=== PATIENT | male | born 1940 | race Caucasian/White ===

== ENCOUNTER → 2022-07-16 10:40 | Outpatient (CLI) | payer MEDICARE, OTHER, SELFPAY ==
--- NOTE | 2022-07-16 | DI.MRI.S_ITS ---
PROCEDURE: MR SHOULDER RT WO CON INDICATIONS: CHRONIC RIGHT SHOULDER PAIN TECHNIQUE: Noncontrast oblique coronal T2 fast spin echo with fat saturation, oblique sagittal T1 spin echo and T2 fast spin echo with fat saturation, axial T1 spin echo and T2 fast spin echo with fat saturation through the shoulder. COMPARISON: [facility], MR, SHOULDER WITHOUT CONTRAST, 06/19/2012, 16:20. [facility], MR, SHOULDER WITHOUT CONTRAST, 01/03/2013, 9:06. FINDINGS: Image quality: Excellent. Rotator cuff: There is a surgical anchor in humeral head. Possible subscapularis tendon repair. Moderate supraspinatus and supraspinatus and infraspinatus tendinosis without full-thickness tear. Sagittal images demonstrate no rotator cuff muscle atrophy. Bones and bursae: No bone marrow contusions or fractures. Severe glenohumeral joint degeneration and moderate acromioclavicular joint degeneration. There is an exophytic osteophyte versus an an os acromiale superior to the acromioclavicular joint. [id number] glenohumeral joint effusion. Capsule and soft tissues: There is degenerative circumferential tear of the glenoid labrum. Glenohumeral ligaments appear intact. Tenodesis of the long head of the biceps tendon. There is longitudinal tear and tendinosis of the long head of the biceps tendon. The rotator interval appears normal, without fibrosis. The coracohumeral ligament is normal in thickness. IMPRESSION: 1. Severe osteoarthritis of the glenohumeral joint. 2. Degenerative circumferential tear of the glenoid labrum. 3. Tenodesis of the long head of the biceps tendon. There is longitudinal tear and tendinosis of the long head of the biceps tendon. 4. Possible repair of the subscapularis tendon. Recommend correlation with surgical history. 5. Moderate tendinosis of the supraspinatus and infraspinatus tendons without full-thickness tear. No rotator cuff muscle atrophy. 6. Small to moderate glenohumeral joint effusion. Dictated by: Stephanie Medrano M.D. on 07/18/2022 at 9:04 Approved by: Stephanie Medrano M.D. on 07/18/2022 at 9:16
== END ==
PROVIDERS: Family Provider Family Medicine; PCP Nurse Practitioner Family; Referring Provider Nurse Practitioner Family; Visit Provider Nurse Practitioner Family
DX: S43.491A Other sprain of right shoulder joint, initial encounter (principal); S46.111A Strain of muscle, fascia and tendon of long head of biceps, right arm, initial encounter; M25.411 Effusion, right shoulder; M25.511 Pain in right shoulder; M19.011 Primary osteoarthritis, right shoulder; G89.29 Other chronic pain
CPT/HCPCS: 73221

== ENCOUNTER → 2022-09-15 10:20 | Outpatient (CLI) | payer MEDICARE, OTHER, SELFPAY ==
--- NOTE | 2022-09-15 | DI.MRI.S_ITS ---
PROCEDURE: MR HIP RT WO CON INDICATIONS: Unilateral primary osteoarthritis, right hip TECHNIQUE: Noncontrast coronal T1 spin echo and STIR through the bony pelvis. Coronal and axial T2 fast spin echo with fat saturation, sagittal T1 spin echo, and oblique axial T2 fast spin echo with fat saturation through the hip. COMPARISON: None. FINDINGS: Image quality: Excellent. Bones and joints: Moderate bilateral hip joint osteoarthritic changes are seen with superior joint space narrowing, subchondral sclerosis and small marginal osteophyte formation. There is no marrow edema. No intraosseous lesions or fractures. No avascular necrosis of the femoral heads. The visualized lower lumbar spine appears normally aligned. Tendons and ligaments: Distal right gluteus medius and minimus tendinosis at their insertion on greater trochanter is seen, without associated muscle atrophy. The nearby proximal iliotibial band also appears intact. The iliopsoas tendon appears intact, without adjacent bursal fluid collections or evidence for impingement syndrome. The origin of the hamstring tendon is intact at the ischial tuberosity, as well as the associated sacrotuberous ligament. The straight and reflected heads of the rectus femoris muscle origin appear intact, as well as the conjoint tendon. The ligamentum teres appears intact where visualized. Labrum and cartilage: There is diffuse thinning of cartilage over right femoral head. Signal abnormality, contour irregularity is seen involving superior anterior labrum at 12-2 o'clock position suggestive of superior anterior labral tear. The alpha angle of the femur is within normal limits at less than 55 degrees. Soft tissues: Visualized muscles demonstrate normal bulk and internal signal. Quadratus femoris muscle demonstrates no internal edema to suggest ischiofemoral impingement. The proximal sciatic neurovascular bundle appears normal adjacent to the hamstring tendons. No free pelvic fluid. Bladder wall thickness is normal. Genitourinary structures and bowel loops appear normal where visualized. IMPRESSION: 1. Moderate bilateral hip joint osteoarthritis. No pelvic or hip fracture. No evidence of avascular necrosis. 2. Distal right gluteus medius and minimus tendinosis. No other muscle or tendon signal abnormalities. 3. Suggestion of superior anterior right hip labral tear at 12-2 o'clock position. Dictated by: Trace Baker M.D. on 09/15/2022 at 15:23 Approved by: Trace Baker M.D. on 09/15/2022 at 15:27
== END ==
PROVIDERS: Family Provider Family Medicine; PCP Nurse Practitioner Family; Referring Provider Nurse Practitioner Family; Visit Provider Nurse Practitioner Family
DX: M16.0 Bilateral primary osteoarthritis of hip (principal)
CPT/HCPCS: 73721

== ENCOUNTER → 2023-02-21 | Outpatient (CLI) | payer MEDICARE, OTHER, SELFPAY ==
--- NOTE | 2023-02-21 | DI.CT.S_ITS ---
PROCEDURE: CT UE RT WO CON INDICATIONS: Primary osteoarthritis, right shoulder TECHNIQUE: Noncontrast 1-1.5 mm thick sections acquired from the acromioclavicular joint to the inferior scapula, with coronal and sagittal reformatting. COMPARISON: None. FINDINGS: Image quality: Excellent. Bones: Imaging finding shows severe osteoarthritic type degenerative change involving the glenohumeral joint. There is a surgical screw noted anteriorly within the o humeral head. There is a large loose body within the shoulder joint superiorly and posteriorly. A moderate-sized knee joint effusion is present. I do not see evidence for acute osseous abnormality. There appears to be prior postsurgical change at the AC joint. Soft tissues: Soft tissues appear within normal limits. IMPRESSION: 1. Severe osteoarthritic type degenerative change involving glenohumeral joint. 2. Large loose body noted within the glenohumeral joint superiorly posteriorly 3. Moderate-sized shoulder joint effusion. 4. Prior postsurgical changes at the AC joint. 5. Surgical screw within anterior aspect of the humeral head. Dictated by: Kashif Mckeon M.D. on 02/21/2023 at 14:55 Approved by: Kashif Mckeon M.D. on 02/21/2023 at 15:00
== END ==
LOC: CT 10:15
PROVIDERS: Family Provider Family Medicine; PCP Family Medicine; Referring Provider Orthopaedic Surgery; Visit Provider Orthopaedic Surgery
DX: M19.011 Primary osteoarthritis, right shoulder (principal); M24.011 Loose body in right shoulder; M25.411 Effusion, right shoulder; Z98.890 Other specified postprocedural states
CPT/HCPCS: 73200

== ENCOUNTER 2023-03-02 06:26 | Inpatient (IN) | payer MEDICARE, OTHER, SELFPAY ==
[2023-02-20 11:45] VITALS: BMI 27.9
[2023-03-02] MEDS: VANCOMYCIN 1,000 MG/200 ML PIGGYBACK 200 MG IV (06:46)
[2023-03-02] MEDS: LACTATED RINGERS 1,000 ML 42 ML IV (06:47)
[2023-03-02 06:59] VITALS: BP 148/71; PULSE 56; RESP 16; TEMP 36.2; O2SAT 98; BMI 27.9
--- NOTE | 2023-03-02 07:27 | SUR.PREOP ---
due to recent toe surgery increased drainage. Dr. couch canceled case
== END 2023-03-02 07:34 | disposition home or self-care (01) | DRG 554 ==
LOC: AC 10:10 → SSU 11:18
PROVIDERS: Admitting Provider Orthopaedic Surgery; Family Provider Family Medicine; PCP Family Medicine; Referring Provider Orthopaedic Surgery; Visit Provider Orthopaedic Surgery
DX: M19.011 Primary osteoarthritis, right shoulder (principal)
CPT/HCPCS: J1100; J2405; J2704; J3010

== ENCOUNTER 2023-03-23 10:48 | Day surgery (SDC) | payer MEDICARE, OTHER, SELFPAY ==
[2023-03-21 08:46] VITALS: BMI 27.9
[2023-03-23] VITALS (14 sets, daily range): BP systolic 117–157; BP diastolic 58–72; PULSE 54–61; RESP 12–20; TEMP 35.8–36.4; O2SAT 94–99; BMI 27.9; BMI 30.7
[2023-03-23] MEDS: LACTATED RINGERS 1,000 ML 42 ML IV (11:44)
[2023-03-23] MEDS: VANCOMYCIN 1,000 MG/200 ML PIGGYBACK 200 MG IV ×2 (11:44→23:20)
[2023-03-23] MEDS: ACETAMINOPHEN 325 MG TABLET 975 MG PO (11:44)
--- NOTE | 2023-03-23 11:54 | PM.PREOP ---
Pre-operative Note Interval Note History & Physical reviewed/Exam performed by Physician: Yes Changes to H&P: No
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
[2023-03-23] MEDS: TRANEXAMIC ACID 1,000 MG VIAL 1000 MG INJ ×2 (12:58→14:14)
--- NOTE | 2023-03-23 13:00 | DI.RAD.S_ITS ---
PROCEDURE: XR SHOULDER RT MIN 2V INDICATIONS: TSA TECHNIQUE: 2 views of the shoulder were acquired. COMPARISON: None. FINDINGS: Bones: Postoperative changes of right shoulder replacement. There is widening of the acromioclavicular joint. Soft tissues: No suspicious soft tissue calcifications. IMPRESSION: Postoperative changes of right shoulder replacement Dictated by: Elroy Avilez M.D. on 03/23/2023 at 17:05 Approved by: Elroy Avilez M.D. on 03/23/2023 at 17:07
--- NOTE | 2023-03-23 13:08 | SUR.PREOP ---
Block start time [1235] . Monitoring initiated and maintained throughout procedure. Oxygen and medications given per anesthesiologist. Patient remained stable throughout procedure, no adverse reactions noted. Block end time [1242].
[2023-03-23] MEDS: GENTAMICIN 200 MG in SODIUM CHLORIDE 0.9% 100 ML 105 MG IV (13:19)
--- NOTE | 2023-03-23 13:19 | SUR.OPER ---
Beach chair on padded OR bed. Head on gel donut secured with tape over gauze. Non-operative arm secured <90 degrees abduction on padded arm board. Pillow under knees. Safety belt at thigh. Cloth tape over blanket over lower legs.
[2023-03-23] MEDS: LIDOCAINE 1% W/EPI 20 ML INJ (13:35)
--- NOTE | 2023-03-23 14:37 | P.OP_ITS ---
Operative Date/Time/Diagnoses Date of procedure: 03/23/23 Time of procedure: 13:00 Pre-op diagnosis: Right glenohumeral joint arthritis Post-op diagnosis: same Procedure & Clinicians Procedure: Right total shoulder arthroplasty Same procedure as scheduled: Yes Indications: End-stage arthritis glenohumeral joint Surgeon: Sanya White Trimmer Buffing Wheel: Maliha Catherine Anesthesia Type: General and Peripheral nerve block Operative Notes Findings: End-stage arthritic changes to the glenohumeral joint with [id number] articulation. Complete loss of cartilage to both sides of the joint. Large osteophytes around the humeral head and neck. Very large loose body behind the posterior aspect of the glenoid. No sign of any rotator cuff tears. No sign of any high-riding humeral head. Closure Type: primary Applied: implant(s) (Arthrex stem less total shoulder arthroplasty medium cage screw large glenoid 51 trunnion 51 x 19 humeral head) Estimated Blood Loss (mL): 100 Procedure in detail: On date of service, Patient was met in the holding area. The operative site was signed and witnessed by the OR staff. The surgeries once again discussed with the patient and any remaining questions they had were answered fully. Patient was taken back to the operating theater and placed on the operating table in a supine position. Great care was taken to ensure that all bony prominences were properly padded. Patient was then placed into the beach chair position. The head and neck were properly positioned and secured. A timeout was performed verifying patient's name, procedure, and the operative site. The upper extremity was then prepped and draped in the normal sterile fashion. Previously, the bony anatomy and incision were marked out as well as injected with Marcaine with epinephrine. A deltopectoral approach was performed. 10 blade was used to incise the skin and fascial tissue. A deep knife was used to continue sharp dissection until the cephalic vein was visualized. The cephalic vein was dissected free allowing us to expose the deltopectoral interval. This interval was then developed. A Frost elevator was used to free up the deltoid of any scarring both superficially as well as deeply. The vein and the deltoid were taken laterally while the pectoralis was taken medially. This gave us good visualization of the strap muscles. The clavipectoral fascia was removed and the strap muscles were then retracted medially with the pectoralis. This gave us stabilization of the subscapularis. The circumflex vessels were ligated and the subscapularis was sharply excised off the lesser tuberosity and then tagged. Once the subscapularis was released we're able to dislocate the shoulder. Patient had end-stage arthritic changes to the humeral head as well as the glenoid with large osteophytes anterior inferiorly as well as posteriorly. A Ronger was then used to remove the osteophytes. See findings above for descriptions of the humeral head and glenoid. Next, cutting guide was placed and a saw was used to remove the humeral head. Once the head was removed it was templated. A stem less head was planned. A 51 trunnion gave the best coverage. Guidewire was drilled and a medium cage screw was the appropriate size. Protector placed for the osteotomy was then placed and and we turned our attention back to the subscapularis as well as the glenoid. The subscapularis was freed up and a 360? fashion. The degenerative anterior and inferior capsular tissue was removed. This was followed by removing the degenerative labral tissue from around the glenoid as well as the biceps insertion. Retractors were used to protect the axillary nerve while we remove the degenerative capsular and labral tissue. This gave us good visualization of the glenoid. Glenoid trials were used until we found the appropriate fit and curvature. A large glenoid provided the best fit. The center hole was drilled followed by reaming of the glenoid. The wound was copiously irrigated after reaming. Next the pegs were drilled and a trial glenoid was impacted into harper ce. Once we were satisfied with the preparation of the glenoid, the final component was cemented into place. This was followed by impaction. We Return to our attention back to the humerus. The protector plate was removed and the 51 trunnion was placed as well as the medium cage screw. Trial heads were placed and a 51 x 19 provided the best overall fit. Trials were removed and bone tunnels were made into the humeral neck. #2 FiberWire were passed through the bone tunnels for eventual subscapularis repair. The final head were impacted into place and the shoulder was reduced. It was taken through range of motion and was felt to be stable in both posterior translation as well as external and internal rotation with abduction. The subscapularis was repaired back to the lesser tuberosity through the bone tunnels. This was then reinforced with soft tissue repair. Part of the rotator interval was then closed. A drain was placed and the rest of the wound was closed in a layered fashion. The shoulder was then cleaned dried and dressed and the patient was taken to the PACU in stable condition. Patient will follow our postoperative protocol for total shoulder arthroplasty. Complications: none Post-operative Condition: stable Disposition: Acute Care Plan for aftercare: Patient will follow our postoperative protocol for total shoulder arthroplasty
[2023-03-23] MEDS: HYDROCODONE/ACET 5/325 TABLET 2 TAB PO ×3 (15:08→23:25)
[2023-03-23] MEDS: LACTATED RINGERS 1,000 ML 100 ML IV (16:51)
--- NOTE | 2023-03-23 17:21 | PC.NURSE ---
Patient arrived from PACU this afternoon at 1535 this afternoon. He reports pain tolerable to R shoulder 2-310. Aquacel dressing is c/d/i. +CMS to R fingers. Sling in place.Patient is up to void this evening and sitting in his chair for dinner. Son at bedside supportive. Call light in place, belongings in reach, frequent rounding, IVF LR running at 100 ml/hr.
[2023-03-23] MEDS: METOPROLOL ER 25 MG TABLET PO (21:26)
[2023-03-23] MEDS: TAMSULOSIN 0.4 MG CAPSULE 0.8 MG PO (21:26)
[2023-03-23] MEDS: DOCUSATE 100 MG CAPSULE PO (21:26)
[2023-03-23] MEDS: SENNOSIDES 8.6 MG TABLET 17.2 MG PO (21:26)
[2023-03-23] MEDS: ATORVASTATIN 20 MG TABLET 80 MG PO (21:27)
[2023-03-23] MEDS: APIXABAN 5 MG TABLET PO (21:27)
[2023-03-24 00:55] VITALS: BP 147/67; PULSE 56; RESP 17; TEMP 36.2; O2SAT 98
[2023-03-24] MEDS: HYDROCODONE/ACET 5/325 TABLET 2 TAB PO (03:33)
[2023-03-24 04:50] VITALS: BP 135/65; PULSE 56; RESP 17; TEMP 36.3; O2SAT 96
[2023-03-24 06:33] LABS: Hemoglobin 13.1 g/dL (13.5-17.5); Mean Corpuscular HGB Conc 33.7 % (30-36); Mean Corpuscular Hemoglobin 29.8 PG (26-34); Mean Corpuscular Volume 88.5 fL (80-100); Platelet Count 152 X10^3/uL (150-400); Red Blood Cell Count 4.41 X10^6/uL (4.5-5.9); Red Cell Distribution Width 15.2 % (11.6-14.8); White Blood Cell Count 10.8 X10^3/uL (4.5-11.0)
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
[2023-03-24] MEDS: HYDROMORPHONE 0.5 MG INJ IV ×2 (08:00→09:56)
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
[2023-03-24] MEDS: APIXABAN 5 MG TABLET PO (09:56)
[2023-03-24] MEDS: EZETIMIBE 10 MG TABLET PO (09:56)
[2023-03-24] MEDS: DOCUSATE 100 MG CAPSULE PO (09:56)
[2023-03-24 09:57] VITALS: BP 135/65
[2023-03-24] MEDS: METOPROLOL ER 25 MG TABLET PO (09:57)
[2023-03-24] MEDS: MAGNESIUM OXIDE 400 MG TABLET PO (09:57)
[2023-03-24] MEDS: hydroCHLOROthiazide 25 MG TABLET PO (10:00)
--- NOTE | 2023-03-24 11:56 | PC.NURSE ---
Patient is A&OX4. VSS,afebrille. BP 's soft and HR 50's, patient is asymptomatic and states this is normal for him in the a.m. Held scheduled antihypertensive medications this a.m. He reports pain well controlled with prn dilaudid. Per pharmacy and alert in MAR unable to administer tylenol containing medication until 1145. He verbalizes understanding and will take this upon discharge. He verbalizes understanding of all discharge medications, site care, activity limiations, s/sx of infection as well as follow up appointment scheduled with MD Handy on 04/03/23. He is escorted via w/ch to private vehicle with his son at 11:15 this a.m. for discharge home to [place].
== END 2023-03-24 11:15 | disposition home or self-care (01) ==
LOC: AC 03-24 11:44 → OR 03-24 12:31
PROVIDERS: Family Provider Family Medicine; PCP Family Medicine; Referring Provider Orthopaedic Surgery; Visit Provider Orthopaedic Surgery
PROC: 0RQJ0ZZ Repair Right Shoulder Joint, Open Approach (ICD-10-PCS; CPT 23472; principal; 2023-03-23 12:15)
DX: M19.011 Primary osteoarthritis, right shoulder (principal); G89.18 Other acute postprocedural pain
CPT/HCPCS: 23472; 36415; 64450; 73030; 82962; 85027; 97161; 97530; C1776; J1100; J1170; J2405; J2704; J3010

== ENCOUNTER → 2023-06-14 11:53 | Outpatient (CLI) | payer MEDICARE, OTHER, SELFPAY ==
[2023-03-23 15:29] VITALS: BMI 30.7
--- NOTE | 2023-06-14 11:54 | DI.MRI.S_ITS ---
PROCEDURE: MR SHOULDER RT WO CON INDICATIONS: Primary osteoarthritis, right shoulder TECHNIQUE: Noncontrast oblique coronal T2 fast spin echo with fat saturation, oblique sagittal T1 spin echo and T2 fast spin echo with fat saturation, axial T1 spin echo and T2 fast spin echo with fat saturation through the shoulder. COMPARISON: [facility], CR, XR SHOULDER 2+ VIEWS RIGHT, 05/26/2023, 14:31. [facility], MR, MR SHOULDER RT WO CON, 07/16/2022, 11:26. FINDINGS: Image quality: Diagnostic. Significant susceptibility artifacts are noted. Rotator cuff: Limited evaluation of rotator cuff tendons shows no gross full-thickness rotator cuff tendon rupture. Distal infraspinatus and subscapularis tendon is seen. Mild to moderate supraspinatus muscle atrophy is seen on sagittal images. Bones and bursae: Susceptibility artifacts are noted limiting the evaluation of osseous structures. No gross marrow edema. No acute fracture or dislocation. Likely postsurgical widening of acromioclavicular joint is seen. No suspicious bony lesions. Capsule and soft tissues: The long head of the biceps tendon is normal to the extent visualized. The rotator interval appears normal, without fibrosis. The coracohumeral ligament is normal in thickness. IMPRESSION: 1. Limited study due to significant susceptibility artifacts. 2. Prior shoulder arthroplasty and expected postsurgical widening of acromioclavicular joint. No acute fracture or dislocation. No gross marrow edema. 3. No gross full-thickness rotator cuff tendon rupture. Suggestion of distal infraspinatus and subscapularis tendinosis. Mild to moderate supraspinatus muscle atrophy. Dictated by: Trace Baker M.D. on 06/14/2023 at 15:53 Approved by: Trace Baker M.D. on 06/14/2023 at 16:05
== END ==
PROVIDERS: Family Provider Family Medicine; PCP Family Medicine; Referring Provider Orthopaedic Surgery; Visit Provider Orthopaedic Surgery
DX: M19.011 Primary osteoarthritis, right shoulder (principal); M62.511 Muscle wasting and atrophy, not elsewhere classified, right shoulder; Z96.611 Presence of right artificial shoulder joint
CPT/HCPCS: 73221

== ENCOUNTER → 2023-09-28 11:17 | Outpatient (CLI) | payer MEDICARE, OTHER, SELFPAY ==
[2023-03-23 15:29] VITALS: BMI 30.7
--- NOTE | 2023-09-28 11:20 | DI.MRI.S_ITS ---
PROCEDURE: MR LUMBAR SPINE WO CON INDICATIONS: Other spondylosis with radiculopathy, lumbar TECHNIQUE: Noncontrast sagittal T1 spin echo and T2 fast echo, sagittal STIR, and T2 fast spin echo through the lumbar spine. In cases with scoliosis, additional coronal T2 fast spin echo may be performed. COMPARISON: [facility], CT, CT ABDOMEN PELVIS WITHOUT CONTRAST, 11/27/2021, 2:08. FINDINGS: Image quality: Excellent. Alignment and Curvature: There is minimal retrolisthesis seen at L1-L2 and L2-L3. Mild levoconvex scoliotic curvature is noted. Bone Marrow: Marrow is of normal overall signal. No acute vertebral body compression fractures. Spinal Cord: Conus medullaris terminates at the T12-L1 level. Visualized cord demonstrates normal signal and size. Paraspinous Soft Tissues: No paravertebral masses. T12-L1: Normal appearance. L1-L2: Mild loss of disc height is seen. Loss of disc signal is seen. Mild to moderate disc bulge is seen. There is a focal annular fissure seen posteriorly. Moderate facet joint hypertrophy is seen. Moderate bilateral neural foraminal narrowing is seen. Mild central canal narrowing is seen. L2-L3: The disc height is well-preserved. Loss of disc signal is seen at this level. Moderate generalized disc bulge is seen. There is a superimposed central disc protrusion. Mild facet joint hypertrophy is seen. There is at least moderate bilateral neural foraminal narrowing seen. There is a degree of compression seen upon the exiting nerve roots. Mild central canal narrowing is seen. L3-L4: The disc height is well-preserved. Loss of disc signal is seen at this level. Moderate disc bulge is seen, which is eccentric to the right. There is a superimposed central disc protrusion. There is a focal annular fissure seen posteriorly. There is prominent right-sided and moderate to prominent left-sided facet hypertrophy. There is moderate to severe bilateral neural foraminal narrowing seen, with an associated degree of compression seen upon the exiting nerve roots. Moderate central canal narrowing is seen. L4-L5: The disc height is well-preserved. Loss of disc signal is seen at this level. Moderate generalized disc bulge is seen. Moderate to prominent facet hypertrophy can be seen. There is moderate to severe bilateral neural foraminal narrowing seen, with an associated degree of compression seen upon the exiting nerve roots. Mild to moderate central canal narrowing is seen. L5-S1: The disc height and disk signal are relatively well-preserved. Mild generalized disc bulge is seen. Moderate facet joint hypertrophy is seen. Moderate bilateral neural foraminal narrowing is seen. No central canal narrowing is seen. IMPRESSION: Multiple levels lumbar spine degenerative change can be seen, which are overall worst at the L3-L4 level. Several sites of significant neural foraminal narrowing can be seen, with associated exiting nerve root compression. Mild levoconvex scoliotic curvature is noted. Dictated by: Hansel Valdes M.D. on 09/28/2023 at 13:31 Approved by: Hansel Valdes M.D. on 09/28/2023 at 13:35
== END ==
LOC: MRI 11:18
PROVIDERS: Family Provider Family Medicine; PCP Family Medicine; Referring Provider Family Medicine; Visit Provider Family Medicine
DX: M48.061 Spinal stenosis, lumbar region without neurogenic claudication (principal); M47.27 Other spondylosis with radiculopathy, lumbosacral region; M48.07 Spinal stenosis, lumbosacral region; M41.9 Scoliosis, unspecified; I73.9 Peripheral vascular disease, unspecified; M47.26 Other spondylosis with radiculopathy, lumbar region; I70.0 Atherosclerosis of aorta; M79.604 Pain in right leg; M79.605 Pain in left leg; I25.2 Old myocardial infarction; G62.9 Polyneuropathy, unspecified
CPT/HCPCS: 72148

== ENCOUNTER → 2023-12-02 13:32 | Outpatient (CLI) | payer MEDICARE, OTHER, SELFPAY ==
[2023-03-23 15:29] VITALS: BMI 30.7
--- NOTE | 2023-12-02 | DI.CT.S_ITS ---
PROCEDURE: CT ANGIO ABD AORTA RUNOFF INDICATIONS: ARTERIAL INSUFF OF LE, BI LEG PAIN TECHNIQUE: After the administration of intravenous contrast, 2.5 mm sections acquired from T12 to the feet, with optional delayed image acquisition from the knees to the feet. 3-dimensional maximum intensity projection (MIP) coronal and sagittal reformats, and/or 3-dimensional volume rendering reformatting was then performed. For radiation dose reduction, the following was used: automated exposure control. COMPARISON: [facility], CT, CT ABDOMEN PELVIS WITHOUT CONTRAST, 11/27/2021, 2:08. FINDINGS: Image Quality: Diagnostic. Abdominal aorta: There is chunky plaque which results in [id number] distal abdominal aortic stenosis just above the iliacs. Splanchnic vessels: Proximal celiac stenosis. SMA patent. OBIE patent. Right lower extremity: High-grade calcified stenosis of the proximal common iliac, just below the aortic bifurcation. Reference axial image 117 of series 4. Likely calcified occlusion of the distal common iliac with long segment occlusion of the external iliac with reconstitution just above the inguinal ligament. Extensive common femoral disease with likely focal calcified occlusion. Diffuse SFA disease. Likely occlusion short segment above Raffy's canal. Likely calcified occlusion of the popliteal focally. Extensive three-vessel runoff disease, patency unknown, secondary to the extensive atherosclerotic calcifications. Left lower extremity: High-grade calcified stenosis of the proximal common iliac, just below the aortic bifurcation, also reference axial image 117 of series 4. Severe external iliac artery stenotic disease. Probable focal calcified occlusion of the common femoral. Long segment occlusion of the SFA. Reconstitution at or below Raffy's canal. Popliteal is mildly disease. There is extensive atherosclerotic calcifications in the runoff vessels, of uncertain patency secondary to the extensive calcifications. Lower Chest: On the most superior image there is a question of a left ventricular apical aneurysm. Reference image 1. This is not definite. ABDOMEN: Liver: No solid mass. Gallbladder: No radiopaque gallstones or wall thickening. Biliary ducts: No biliary dilation. Pancreas: No ductal dilation. Spleen: Size is within normal limits. Adrenal Glands: No adrenal nodules. Kidneys and Ureters: No hydronephrosis. No solid mass. No complex renal cystic lesion which requires follow up. Stomach and Bowel: Laparoscopic band. Large diffuse fecal load. Normal colonic caliber, without significant wall thickening. Peritoneum: No abnormal intraperitoneal fluid. No free air. Ventral Wall: No hernia. Previous mesh repair. Abdominal Nodes: No retroperitoneal or mesenteric adenopathy by size criteria. Vessels: Aorta and inferior vena cava are normal in size. PELVIS: Pelvic Organs: Prostatomegaly.. Bladder: Multiple bladder diverticuli. Bladder wall is minimally prominent. No bladder stones. Pelvic Nodes: No enlarged lymph nodes. Miscellaneous: Prominent bilateral fat containing inguinal hernias. Bones: No aggressive osseous abnormality. Lumbar degenerative change. IMPRESSION: 1. Of the most superior image there is a question of a left ventricular apical aneurysm. Consider correlation with echo. 2. Advanced peripheral vascular disease. Findings include high-grade origin stenosis of the common iliacs, bilateral iliac occlusions and focal common femoral occlusions. There is short segment occlusion of the right SFA and long segment occlusion of the left SFA. There is extensive distal runoff vessel atherosclerotic disease. 3. Prostatomegaly, bladder diverticuli. 5. Prominent bilateral fat containing inguinal hernias. Dictated by: Jonas Lance M.D. on 12/03/2023 at 8:42 Approved by: Jonas Lance M.D. on 12/03/2023 at 9:18
== END ==
LOC: CT 13:33
PROVIDERS: Family Provider Family Medicine; PCP Family Medicine; Referring Provider Surgery Vascular Surgery; Visit Provider Surgery Vascular Surgery
DX: I73.9 Peripheral vascular disease, unspecified (principal); M79.605 Pain in left leg; M79.604 Pain in right leg; R26.2 Difficulty in walking, not elsewhere classified; N40.0 Benign prostatic hyperplasia without lower urinary tract symptoms; N32.3 Diverticulum of bladder; K40.20 Bilateral inguinal hernia, without obstruction or gangrene, not specified as recurrent
CPT/HCPCS: 75635; Q9967